=== PATIENT | male | born 1980 | race Caucasian/White ===

== ENCOUNTER 2020-06-18 22:08 | Emergency (ER) | payer BC, OTHER ==
[~2020-06-18 22:08] MED LIST: LODINE CAP 300300 MG PO; NORFLEX 100 MG100 MG PO
[2020-06-18 22:50] LABS: HEMOGLOBIN 14.1 gm/dl (14.0-17.5); RED BLOOD COUNT 4.27 M/UL (4.20-5.50); WHITE BLOOD COUNT 12.2 K/UL (4.5-11.0)
[2020-06-18 23:08] LABS: BUN/CREATININE RATIO 15 (0-10)
[2020-06-19] MEDS ORDERED: IBUPROFEN800 MG PO (00:11)
[2020-06-19] MEDS ORDERED: CYCLOBENZAPRINE10 MG PO (00:11)
== END 2020-06-19 01:10 | disposition home or self-care (01) ==
LOC: ER1 22:08
PROVIDERS: Family Medicine
DX: S20.219A Contusion of unspecified front wall of thorax, initial encounter (principal); F17.210 Nicotine dependence, cigarettes, uncomplicated; W55.82XA Struck by other mammals, initial encounter
CPT/HCPCS: 71046; 71120; 80053; 82550; 82553; 83874; 84484; 85025; 93005; 96372; 99285; J1885

== ENCOUNTER → 2020-07-14 | Outpatient (CLI) | payer BC, OTHER ==
[~2020-07-14] MED LIST changes: +CYCLOBENZAPRINE10 MG PO; +IBUPROFEN800 MG PO
[2020-07-14 09:16] LABS: HEMOGLOBIN 15.2 gm/dl (14.0-17.5); RED BLOOD COUNT 4.54 M/UL (4.20-5.50); WHITE BLOOD COUNT 12.6 K/UL (4.5-11.0)
[2020-07-14 10:23] LABS: BUN/CREATININE RATIO 11 (0-10)
[2020-07-15 09:14] LABS: TESTOSTERONE, SERUM 326 ng/dL (264-916)
== END ==
LOC: LAB 08:44
PROVIDERS: Nurse Practitioner Family
DX: Z13.220 Encounter for screening for lipoid disorders (principal); R53.83 Other fatigue
CPT/HCPCS: 36415; 80053; 80061; 84403; 85025

== ENCOUNTER 2021-02-11 05:32 | Emergency (ER) | payer BC, OTHER ==
[2021-02-11 06:07] LABS: HEMOGLOBIN 14.3 gm/dl (14.0-17.5); RED BLOOD COUNT 4.28 M/UL (4.20-5.50)
[2021-02-11 06:27] LABS: BUN/CREATININE RATIO 11 (0-10)
[2021-02-11] MEDS ORDERED: ZOFRAN4 MG PO (08:06)
[2021-02-11] MEDS ORDERED: FLOMAX0.4 MG PO (08:06)
[2021-02-11] MEDS ORDERED: TORADOL 10 MG T10 MG PO (08:06)
== END 2021-02-11 08:14 | disposition home or self-care (01) ==
LOC: ER1 05:32
PROVIDERS: Emergency Medicine
DX: N13.2 Hydronephrosis with renal and ureteral calculous obstruction (principal); E87.6 Hypokalemia; F17.200 Nicotine dependence, unspecified, uncomplicated
CPT/HCPCS: 80053; 81001; 83690; 85025; 96374; 96375; 99284; J1885; J2405